=== PATIENT | female | born 1985 | race Caucasian/White ===

== ENCOUNTER 2020-09-28 13:30 | Emergency (ER) | payer BC ==
[~2020-09-28] VITALS: Ht 170.2 cm; Wt 72.6 kg
[2020-09-28 13:30] VITALS: BP_SYST 121
--- NOTE | 2020-09-28 13:30 | NUR ---
Placed in room 6. Placed on appliance counselor, blood pressure machine and pulse oximeter. To gown for exam. Side rails up. Report given to MACKENZIE Olvera.
--- NOTE | 2020-09-28 13:41 | NUR ---
DR ALVARENGA AT BEDSIDE TO ASSESS.
--- NOTE | 2020-09-28 13:54 | NUR ---
LABS/IV HL. EKG COMPLETED
[2020-09-28 13:57] LABS: BASOPHILS % (AUTO) 0.4 % (0.0-2.0); EOSINOPHILS # (AUTO) 0.2 K/uL (0.0-0.4); EOSINOPHILS % (AUTO) 2.2 % (0.0-4.0); HEMATOCRIT 42.1 % (36-48); HEMOGLOBIN 14.1 g/dL (12.0-16.0); LYMPHOCYTES # (AUTO) 3.2 K/uL (1.0-5.5); LYMPHOCYTES % (AUTO) 45.6 % (20.5-51.5); MEAN CORPUSCULAR HEMOGLOBIN 30 pg (27-31); MEAN CORPUSCULAR HGB CONC 34 % (32-36); MEAN CORPUSCULAR VOLUME 89 fL (79.0-98.0); MONOCYTES # (AUTO) 0.4 K/uL (0.0-1.0); MONOCYTES % (AUTO) 5.1 % (1.7-9.3); NEUTROPHILS # (AUTO) 3.3 K/uL (1.8-7.7); NEUTROPHILS % (AUTO) 46.7 % (40.0-70.0); PLATELET COUNT (AUTO) 239 K/uL (130-430); RED BLOOD CELL COUNT(AUTO) 4.75 MIL/uL (4.2-6.2); RED CELL DISTRIBUTION WIDTH 13.4 % (9.0-15.0)
[2020-09-28] MEDS ORDERED: DIPHENHYDRAMINE INJ 50 MG/ML VIAL IVP ONE (14:00)
[2020-09-28 14:10] LABS: CALCIUM 9.4 mg/dL (8.4-11.0); CREATININE 1.08 mg/dL (0.55-1.30); POTASSIUM 3.5 mmol/L (3.5-5.1)
[2020-09-28 14:16] LABS: ALBUMIN 4.1 g/dL (3.4-4.8); TOTAL BILIRUBIN 0.4 mg/dL (0.0-1.0)
--- NOTE | 2020-09-28 14:16 | NUR ---
DR YUAN AT BEDSIDE TO ASSESS. PT CALM, ALERT, NO DISTRESS
--- NOTE | 2020-09-28 14:23 | NUR ---
CXR IN PROGRESS, PT CALM, ALERT, NO DISTRESS
[2020-09-28] MEDS ORDERED: LevALBUTEROL HCL 1.25 MG/0.5 ML *CONC.* VIAL.NEB (XOPENEX CONC.) INH ONE (14:30)
[2020-09-28 14:39] LABS: CKMB RELATIVE INDEX 1.2 (0.0-2.9)
[2020-09-28] MEDS ORDERED: methylPREDNISolone SOD SUCC/PF 62.5 MG/ML VIAL IVP ONE (16:00)
[2020-09-28] MEDS ORDERED: PRED20TA PO (16:13)
[2020-09-28 16:40] VITALS: BP_SYST 119
--- NOTE | 2020-09-28 16:41 | NUR ---
Patient given written and verbal discharge instructions and verbalizes understanding. ER MD discussed with patient the results and treatment provided. Patient in stable condition. ID arm band removed. IV catheter removed intact and dressing applied, no active bleeding. Patient educated on pain management and to follow up with PMD. Pain Scale 0/10 Opportunity for questions provided and answered.
== END 2020-09-28 16:41 | disposition home or self-care (01) ==
LOC: SED 13:30
DX: T78.3XXA Angioneurotic edema, initial encounter (principal); R06.02 Shortness of breath; R07.9 Chest pain, unspecified; Z88.1 Allergy status to other antibiotic agents; Z88.5 Allergy status to narcotic agent; Z88.6 Allergy status to analgesic agent
CPT/HCPCS: 36415; 71045; 80053; 82550; 82553; 84484; 85025; 93005; 94640; 96374; 96375; 99285; J1200; J2930; J7612